=== PATIENT | female | born 1985 | race African-American/Black ===

== ENCOUNTER 2024-02-05 20:10 | Observation (INO) | payer OTHER ==
[2024-02-05 21:22] LABS: Anisocytosis Slight; Basophils # (A) 0.1 k/uL (0-0.2); Basophils % (A) 1 %; Eosinophils # (A) 0.2 k/uL (0-0.7); Eosinophils % (A) 2 %; HCT 26.3 % (34.0-46.0); HGB 7.5 gm/dL (11.4-16.0); Hypochromasia Marked; Lymphocytes # (A) 2.7 k/uL (1.0-4.8); Lymphocytes % (A) 33 %; MCH 19.9 pg (25.0-35.0); MCHC 28.5 g/dL (31.0-37.0); MCV 69.9 fL (80.0-100.0); Mean Platelet Volume 6.6; Microcytosis Marked; Monocytes # (A) 0.4 k/uL (0-1.0); Monocytes % (A) 5 %; Neutrophils # (A) 4.6 k/uL (1.3-7.7); Neutrophils % (A) 56 %; Platelet Count 406 k/uL (150-450); Poikilocytosis Slight; RBC 3.76 m/uL (3.80-5.40); RDW 18.6 % (11.5-15.5); WBC 8.2 k/uL (3.8-10.6)
[2024-02-05 21:31] LABS: ALT 18 U/L (4-34); AST 25 U/L (14-36); African American GFR (CKD) >90 (>60 ml/min/1.73 sqM); Albumin 3.9 g/dL (3.5-5.0); Alkaline Phosphatase 101 U/L (38-126); Anion Gap 4 mmol/L; Blood Urea Nitrogen 14 mg/dL (7-17); Calcium 9.3 mg/dL (8.4-10.2); Carbon Dioxide 26 mmol/L (22-30); Chloride 107 mmol/L (98-107); Glucose 103 mg/dL (74-99); Non-African American GFR(CKD) 90 (>60 ml/min/1.73 sqM); Potassium 4.1 mmol/L (3.5-5.1); Sodium 137 mmol/L (137-145); Total Bilirubin 0.4 mg/dL (0.2-1.3); Total Protein 6.9 g/dL (6.3-8.2)
[2024-02-05 21:32] LABS: Prothrombin Time 11.2 sec (10.0-12.5)
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
--- NOTE | 2024-02-05 22:01 | CT ---
EXAMINATION TYPE: CT brain wo con DATE OF EXAM: 02/05/2024 COMPARISON: None INDICATION: Headache x 2 months DLP: 1139.4 mGycm, Automated exposure control for dose reduction was used. CONTRAST: None CT of the brain is performed utilizing 3 mm thick sections through the posterior fossa and 3 mm thick sections through the remaining calvarium. Study is performed within 24 hours of arrival to the hosp ital. No abnormal hyperdensity is present to suggest an acute intracranial hemorrhage. No mass lesion is evident. No acute infarcts are evident. Ventricles and sulci are appropriate for the patient age. Paranasal sinuses and mastoid air cells within the [id number] are clear. IMPRESSION: 1. No acute intracranial process. Follow up MRI can be performed as clinically indicated. [facility], , 02/05/2024 9:58 PM
--- NOTE | 2024-02-05 22:19 | US ---
EXAMINATION TYPE: US pelvis complete transvag DATE OF EXAM: 02/05/2024 COMPARISON: NONE CLINICAL INDICATION: Female, 38 years old with history of menorrhagia; heavy vaginal bleeding/ clots TECHNIQUE: Transvaginal (TV) and Transabdominal (TA) . Transabdominal sonographic images of the pel vis were acquired. Transvaginal sonographic images were medically necessary to better assess the fol lowing anatomy: Endometrium Date of LMP: EXAM MEASUREMENTS: Uterus: 9.4x6.2x7.7 cm Endometrial Stripe: 0.8 cm Right Ovary: not visualized Left Ovary: 7.3x4.3x4.5 cm 1. Uterus: Anteverted wnl 2. Endometrium: there is fluid and interna;l debris/likely blood clots within the endometrium 3. Right Ovary: Obscured by overlying bowel gas 4. Left Ovary: 3 large simple cysts measuring up to 3.8x3.2x2.9cm Spectral, color and waveform doppler imaging shows good arterial and venous flow within the left ov haylee; 5. Bilateral Adnexa: Obscured by overlying bowel gas 6. Posterior cul-de-sac: wnl poor visualization transvaginally. Exam limited by bowel and shadowing. IMPRESSION: Suboptimal study. No abnormal thickening of the endometrium. Internal blood product is no yamilka. Right ovary not seen with certainty. [facility], , 02/05/2024 10:17 PM
[2024-02-05] MEDS ORDERED: ONDANSETRON 4 MG/2 ML VIAL IVP PRN (23:30)
[2024-02-05] MEDS ORDERED: NALOXONE 0.4 MG/ML 1 ML VIAL IV PRN (23:30)
[2024-02-05] MEDS ORDERED: MORPHINE SULFATE 4 MG/ML SYRINGE IV PRN (23:30)
[2024-02-05] MEDS ORDERED: HYDROmorphone 0.5 MG/0.5 ML SYRINGE IVP PRN (23:30)
[2024-02-05] MEDS ORDERED: ACETAMINOPHEN TAB 325 MG TAB PO PRN (23:30)
[2024-02-06] MEDS: TRANEXAMIC 1,000 MG/100ML-NACL 1,000 MG in SALINE 1 100ML.BAG IVPB ONE (00:23)
[2024-02-06] MEDS: SODIUM CHLORIDE 0.9% 1,000 ML IV SCH (00:23)
[2024-02-06 06:18] LABS: Anisocytosis Slight; Basophils % (A) 1 %; Eosinophils # (A) 0.2 k/uL (0-0.7); Eosinophils % (A) 3 %; HCT 26.5 % (34.0-46.0); HGB 7.5 gm/dL (11.4-16.0); Hypochromasia Marked; Lymphocytes # (A) 2.2 k/uL (1.0-4.8); Lymphocytes % (A) 29 %; MCH 20.1 pg (25.0-35.0); MCHC 28.3 g/dL (31.0-37.0); MCV 71.1 fL (80.0-100.0); Mean Platelet Volume 6.8; Microcytosis Marked; Monocytes # (A) 0.3 k/uL (0-1.0); Monocytes % (A) 4 %; Neutrophils # (A) 4.7 k/uL (1.3-7.7); Neutrophils % (A) 62 %; Platelet Count 368 k/uL (150-450); Poikilocytosis Slight; RBC 3.73 m/uL (3.80-5.40); WBC 7.7 k/uL (3.8-10.6)
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
--- NOTE | 2024-02-06 13:07 | P.DS ---
Providers Date of admission: 02/05/24 23:41 Expected date of discharge: 02/06/24 Attending physician: Khang Perea Primary care physician: Stated None - Discharge Diagnosis(es) (1) Abnormal uterine bleeding Current Visit: Yes Status: Acute (2) Low hemoglobin Current Visit: Yes Status: Acute Hospital Course: The patient is a 38-year-old 3 para 1-0-2-1 admitted through the emergency room with a history of dysfunctional uterine bleeding over the last several months ultimately presenting to the emergency room last evening with moderate to heavy bleeding. Hemoglobin in the emergency room was found to be 7.5 with some moderate ongoing bleeding. The emergency room staff felt that she deserved to be admitted for serial hemoglobin checks. She was given a dose of tranexamic acid in the emergency room intravenously. Pelvic ultrasound demonstrated no significant abnormal findings aside from left ovarian simple cysts, the largest of which was approximately 3 cm. Historically the patient has had similar irregularities when her thyroid function was abnormal. She was admitted where her vital signs remained stable and she was afebrile throughout. Repeat hemoglobin the following day was stable at 7.5. She reported significantly less bleeding by today. After long discussion, we opted to proceed with laboratory check of thyroid function as well as follicle- stimulating hormone. She has benefited in the past from iron infusion which was additionally ordered. Those labs and the iron infusion are pending at the time of this dictation but, assuming that everything is within normal limits, she will be discharged to home to follow-up as an outpatient as needed. She additionally will follow-up with her primary care doctor in the next 1 to 2 weeks for further workup. Instructions were to call for any significantly heavy bleeding or if she wished to have intervention with an oral contraceptive pill. I did also spend a few moments discussing the idea of endometrial ablation. She was provided a prescription for tranexamic acid 650 mg, 2 p.o. 3 times daily for up to 5 days for heavy bleeding, #30 dispensed with 5 refills. Procedures: #1. IV hydration #2. Serial hemoglobin #3. Iron infusion Patient Condition at Discharge: Stable Plan - Discharge Summary Discharge Rx Participant: No Follow up Appointment(s)/Referral(s): Nonstaff,Physician [REFERRING] - 2 Weeks Discharge Disposition: HOME SELF-CARE
[2024-02-06] MEDS: SODIUM FERRIC GLUCONAT-SUCROSE 125 MG in SODIUM CHLORIDE 0.9% 100 ML IVPB ONE (14:40)
[2024-02-06 15:46] VITALS: BP 107/62; PULSE 91; RESP 17; TEMP 98.9
[2024-02-06 23:30] LABS: Follicle Stimulating Hormone 3.4 mIU/mL
== END 2024-02-06 18:23 | disposition home or self-care (01) ==
LOC: EC 20:10 → 4SSUR 23:41
PROVIDERS: ADMIT Obstetrics & Gynecology; ATTEND Obstetrics & Gynecology
DX: N93.8 Other specified abnormal uterine and vaginal bleeding (principal); D64.9 Anemia, unspecified; N83.292 Other ovarian cyst, left side; E89.0 Postprocedural hypothyroidism; R10.2 Pelvic and perineal pain; R51.9 Headache, unspecified; Z85.850 Personal history of malignant neoplasm of thyroid; Z91.410 Personal history of adult physical and sexual abuse
CPT/HCPCS: 36415; 70450; 76830; 76856; 80053; 81025; 83001; 84436; 84443; 84480; 85025; 85610; 85730; 93976; 96361; 96365; 96366; 99285